=== PATIENT | male | born 1965 | race Caucasian/White ===

== ENCOUNTER 2024-11-06 18:41 | Emergency (ER) | payer MEDICARE, SELFPAY ==
[2024-11-06 18:45] VITALS: BP 148/87
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
[2024-11-07 00:30] VITALS: BP 158/99
== END 2024-11-07 00:33 | disposition home or self-care (01) ==
LOC: EMR 18:41
PROVIDERS: EMERGENCY PHYSICIAN Student in an Organized Health Care Education/Training Program; FAMILY PHYSICIAN Internal Medicine
DX: S82.892A Other fracture of left lower leg, initial encounter for closed fracture (principal); W19.XXXA Unspecified fall, initial encounter; I10 Essential (primary) hypertension; F17.210 Nicotine dependence, cigarettes, uncomplicated; Z87.820 Personal history of traumatic brain injury
CPT/HCPCS: 99283; 29515; 73610